=== PATIENT | male | born 1990 | race Caucasian/White ===

== ENCOUNTER 2020-11-24 19:57 | Emergency (ER) | payer OTHER, SELFPAY ==
[2020-11-24 20:00] VITALS: BP 160/101; PULSE 122; RESP 18; TEMP 37; O2SAT 99; BMI 33.7
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
[2020-11-24 20:51] VITALS: BP 139/90; PULSE 90; RESP 18; O2SAT 98
[2020-11-24 20:51] LABS: Basophils % 0.3 %; Eosinophils # 0.1 10^3/uL (0.0-0.8); Hemoglobin 14.8 g/dL (11.7-16.6); Lymphocytes # 1.6 10^3/uL (0.8-4.8); Lymphocytes % 12.7 %; Mean Corpuscular HGB Conc 32.9 g/dL (30.0-36.0); Mean Corpuscular Hemoglobin 29.9 pg (28.0-34.0); Mean Corpuscular Volume 90.9 fL (80-94); Mean Platelet Volume 10.9 fL (7.4-10.4); Monocytes # 0.9 10^3/uL (0.2-0.9); Monocytes % 7.5 %; Neutrophils # 9.65 10^3/uL (1.8-7.7); Neutrophils % 78.3 %; Nucleated Red Blood Cells % 0 %; Platelet Count 156 10^3/cmm (130-400); Red Blood Count 4.95 10^6/uL (4.1-5.3); Red Cell Distribution Width 12.6 % (12.1-15.1); White Blood Count 12.3 10^3/uL (4.0-10.0)
[2020-11-24 21:01] LABS: Lactate (Lactic Acid level) 0.9 mmol/L (0.5-2.2)
[2020-11-24 21:02] LABS: Alanine Aminotransferase 29 U/L (0-41); Albumin Level 4.5 g/dL (3.5-5.2); Alkaline Phosphatase 67 IU/L (40-130); Anion Gap 14.7 (5-19); Aspartate Amino Transferase 24 U/L (0-40); Blood Urea Nitrogen 14 mg/dL (6-20); Calcium 9.2 mg/dL (8.5-10.5); Carbon Dioxide 25 mmol/L (22-29); Chloride 103 mmol/L (98-107); Globulin 2.7 g/dL (1.3-4.6); Glomerular Filtration Rate 87.7 mL/min (90-130); Glucose 91 mg/dL (65-115); Osmolality Calculated 288 mOsm/kg (285-295); Potassium 3.7 mmol/L (3.5-5.1); Sodium 139 mmol/L (136-145); Total Bilirubin 0.6 mg/dL (0.15-1.2); Total Protein 7.2 g/dL (6.6-8.7)
[2020-11-24] MEDS: predniSONE 10 mg Tablet PO (21:21)
[2020-11-24] MEDS: cephALEXin 500 mg Capsule PO (21:21)
== END 2020-11-24 21:25 | disposition home or self-care (01) ==
PROVIDERS: Emergency Provider Nurse Practitioner Family; PCP Pediatrics Adolescent Medicine
DX: I80.02 Phlebitis and thrombophlebitis of superficial vessels of left lower extremity (principal)
CPT/HCPCS: 36415; 80053; 83605; 85025; 93971; 99283; J7512

== ENCOUNTER → 2022-05-12 15:47 | Outpatient (BNVA) | payer BC, SELFPAY | PROVIDERS: PCP Pediatrics Adolescent Medicine; Visit Provider Family Medicine | DX: M79.642 Pain in left hand (principal); S69.92XA Unspecified injury of left wrist, hand and finger(s), initial encounter; W22.8XXA Striking against or struck by other objects, initial encounter | CPT/HCPCS: 73130 ==

== ENCOUNTER → 2023-01-21 07:59 | Outpatient (BNVA) | payer BC, SELFPAY | PROVIDERS: PCP Family Medicine; Visit Provider Physician Assistant | DX: M54.50 Low back pain, unspecified (principal); M54.6 Pain in thoracic spine | CPT/HCPCS: 72070; 72110 ==

== ENCOUNTER 2023-08-08 22:37 | Emergency (ER) | payer BC, SELFPAY ==
[2023-08-08 22:53] VITALS: BP 185/108; PULSE 88; RESP 20; TEMP 36.6; O2SAT 97; BMI 36.7
--- NOTE | 2023-08-08 23:34 | CTR_ITS ---
PROCEDURE INFORMATION: Exam: CT Lumbar Spine Without Contrast Exam date and time: 08/08/2023 11:41 PM Age: 33 years old Clinical indication: Low back pain; Patient HX: C/O lower back pain after lifting heavy object at work earlier today. ; Additional info: R lumbar radiculopathy TECHNIQUE: Imaging protocol: Computed tomography of the lumbar spine without contrast. Radiation optimization: All CT scans at this facility use at least one of these dose optimization techniques: automated exposure control; mA and/or kV adjustment per patient size (includes targeted exams where dose is matched to clinical indication); or iterative reconstruction. REPORTING DATA: Count of CT and Cardiac NM exams in prior 12 months: This patient has received 0 known CTs and 0 known cardiac nuclear medicine studies in the 12 months prior to the current study. COMPARISON: CR XR lumbar spine min 4V [id number] 01/21/2023 8:02 AM RADIATION DOSE METRICS: Total DLP (mGy-cm): 1414.6 FINDINGS: Bones/joints: Transitional vertebral anatomy noted, with partial sacralization of L5 noted on the right. Mild scoliosis of the lumbar spine, convex to the left. No spondylolisthesis or spondylolysis. Vertebral body heights are preserved. No lumbar vertebral compression fractures are noted. Posterior elements appear intact. There is a moderate-sized disc protrusion demonstrated at L3-L4. This is associated with mild spinal stenosis at this level. Mild posterior disc/osteophyte complex at L4-L5. Soft tissues: Unremarkable. CT/CT lumbar spine wo con* [id number] IMPRESSION: 1. Transitional vertebral anatomy noted, with partial sacralization of L5 noted on the right. 2. There is a moderate-sized disc protrusion demonstrated at L3-L4, of undetermined age. This is associated with mild spinal stenosis at this level. Consider nonemergent follow-up MRI of the lumbar spine for further assessment. 3. No acute fracture demonstrated.
[2023-08-09] MEDS: HYDROmorphone 1 mg/mL INJ 1 mL 2 MG IM (00:04)
[2023-08-09] MEDS: methylPREDNISolone (DEPO) 80 MG/ML INJ 1 mL IM (00:05)
[2023-08-09] MEDS: ondansetron 4 MG Tablet PO (00:05)
[2023-08-09] MEDS: dexamethasone 10 mg/mL INJ IM (00:05)
[2023-08-09] MEDS: tizanidine 4 mg Tablet PO (00:05)
--- NOTE | 2023-08-09 00:29 | ED_ITS ---
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 He presents with significant lower back pain, with radicular pain mainly down the right side following lifting a 5 gallon can of paint earlier in the day. He took ibuprofen and 1 hydrocodone at home without much relief. Pain does radiate down the right leg to the foot. No numbness. No significant weakness. No groin or genital anesthesia, no loss of bowel or bladder function. Associated symptoms: Reports nausea; Deny abdominal pain, fever(s) or vomiting Review of Systems Const: Denies: fever(s) Card: Denies: chest pain Resp: Denies: dyspnea GI: Reports: nausea; Denies: abdominal pain or vomiting : Denies: flank pain or difficulty urinating Musc: Reports: back pain and extremity pain; Denies: neck pain Skin/Breast: Denies: rash Physical Exam Const: COMMON NORMALS: no acute distress GENERAL APPEARANCE: cooperative; not ill appearing and not frail appearing HENMT: COMMON NORMALS: normocephalic, atraumatic and Normal external nose present HEAD & SCALP: normocephalic and atraumatic FACE & SINUS: normal facial exam and face symmetric NOSE: Normal external nose present Eye: COMMON NORMALS: Equal, round and reactive pupils present and EOMs intact bilaterally PUPIL: Yes Equal, round and reactive pupils present Neck/C-Spine: GENERAL: Yes trachea midline Chest: CHEST: Yes Symmetrical chest wall rise Resp: COMMON NORMALS: normal respiratory effort, No retractions, No use of accessory muscles and clear to auscultation bilaterally AUSCULTATION: clear to auscultation bilaterally Cardio: COMMON NORMALS: regular rate and regular rhythm RATE: regular rate RHYTHM: regular rhythm GI: COMMON NORMALS: Normal to inspection, nondistended, normoactive bowel sounds present Back/Pelvis: OTHER: Examination of the lumbar spine reveals some midline tenderness at L4. There is right-sided greater than left-sided paraspinal tenderness. Straight leg raise is positive on the right. No weakness on muscular testing. DTRs are normal at patella and Achilles on the right. Extremity: COMMON NORMALS: no pedal edema Neuro: MONIQUE COMA SCALE: document GCS findings Monique coma scale eye opening: Spontaneous Monique coma scale verbal response: Orientated Moody coma scale motor response: Obey commands Monique coma scale total score: 15 SENSORY EXAM: Yes extremities (intact) Psych: COMMON NORMALS: speech normal SPEECH: Yes normal speech Skin: COMMON NORMALS: no rashes or lesions noted GENERAL SKIN EXAM: no rashes or lesions noted Course Vital Signs: Vital signs: Vital Signs Temperature 98 F 08/09/23 01:29 Pulse Rate 88 08/09/23 01:29 Respiratory Rate 20 H 08/09/23 01:29 Blood Pressure 185/108 08/09/23 01:29 Pulse Oximetry 97 08/09/23 01:29 MDM - Back Pain/Injury Medical Decision Making CT of the back shows a transpositional sacralization of L5. There is also a moderate size disc protrusion at L3-L4 associated with mild stenosis. This is likely the cause of his symptoms, as he does have lateral thigh and anterior leg radicular pain. He is given injections of dexamethasone/Depo-Medrol, Dilaudid, and oral tizanidine with some improvement here. He will be prescribed pain medication, muscle relaxers. Outpatient follow-up. Labs Radiology Impressions Lumbar Spine CT 08/08/23 23:34 IMPRESSION: 1. Transitional vertebral anatomy noted, with partial sacralization of L5 noted on the right. 2. There is a moderate-sized disc protrusion demonstrated at L3-L4, of undetermined age. This is associated with mild spinal stenosis at this level. Consider nonemergent follow-up MRI of the lumbar spine for further assessment. 3. No acute fracture demonstrated. All radiology interpretation(s) finalized by discharge Discharge Plan Discharge Patient Disposition: Home Clinical Impression: Lumbar radiculopathy Condition: Stable Prescriptions: New Percocet 7.5-325 mg tablet 1 tab PO Q6H PRN (Reason: pain) Qty: 10 0RF tizanidine 4 mg capsule 4 mg PO Q8H PRN (Reason: muscle spasticity) Qty: 30 0RF Discontinued hydrocodone-acetaminophen 5-325 mg tablet 1 tab PO BID PRN (Reason: pain) 5 Days Qty: 10 0RF Rx Instructions: donot drive or operate machinery or drink while taking medication prednisone 20 mg tablet 20 mg PO DAILY Qty: 15 0RF Rx Instructions: 60 mg x 3 days 40 mg x 2 days 20 mg x 2 days Discharge Orders: Discharge ED (Routine); Ordered 08/09/23 Ordered By: Khanh Hutson Referrals: Bhargavi Davison APN [Primary Care Provider] - 1-3 days Patient Instructions: Lumbar Radiculopathy (ED), Opioid Safety, Pain Management Activity Restrictions/Additional Instructions: Medications as directed. Follow-up with your doctor next week. Return for worsening problems. Stand Alone Forms: Work/School Release Coding Level of Care Code ED Well Control Instructor for Hermila Frank
[2023-08-09] MEDS: oxyCODONE-APAP 5-325 mg Tablet 2 TAB PO (01:18)
[2023-08-09 01:29] VITALS: BP 185/108; PULSE 88; RESP 20; TEMP 36.6; O2SAT 97
== END 2023-08-09 01:30 | disposition home or self-care (01) ==
PROVIDERS: Emergency Provider Emergency Medicine; PCP Nurse Practitioner Family
DX: M51.16 Intervertebral disc disorders with radiculopathy, lumbar region (principal)
CPT/HCPCS: 72131; 96372; 99284; J1040; J1100; J1170; Q0162

== ENCOUNTER → 2023-08-12 15:48 | Outpatient (BNVA) | payer BC, SELFPAY | PROVIDERS: PCP Nurse Practitioner Family; Visit Provider Orthopaedic Surgery | DX: M54.16 Radiculopathy, lumbar region (principal); M41.9 Scoliosis, unspecified | CPT/HCPCS: 72110 ==

== ENCOUNTER 2023-10-19 15:58 | Emergency (ER) | payer OTHER, SELFPAY ==
[2023-10-19 16:23] VITALS: BP 191/140; PULSE 120; RESP 16; TEMP 37.1; O2SAT 98; BMI 35.5
--- NOTE | 2023-10-19 17:06 | XRR_ITS ---
PROCEDURE INFORMATION: Exam: XR Left Elbow Exam date and time: 10/19/2023 5:28 PM Age: 33 years old Clinical indication: Injury or trauma; Prior surgery; Surgery date: 6+ months; Patient HX: Lt elbow/forearm pain post fall; HX orif x 20yr ago TECHNIQUE: Imaging protocol: Radiologic exam of the left elbow. Views: 3 or more views. COMPARISON: CR (UP EXM, ) 10/19/2023 5:28 PM FINDINGS: Bones/joints: Negative for acute fracture or focal bony abnormality. Soft tissues: Unremarkable XR/XR elbow LT min 3V* [id number] IMPRESSION: 1. No acute findings. 2. Status post ORIF left radius.
--- NOTE | 2023-10-19 17:06 | XRR_ITS ---
PROCEDURE INFORMATION: Exam: XR Left Forearm Exam date and time: 10/19/2023 5:28 PM Age: 33 years old Clinical indication: Injury or trauma; Fall; Prior surgery; Surgery date: 6+ months; Patient HX: Lt elbow/forearm pain; HX forearm orif x 20+ yrs ago; Additional info: Lt elbow/forearm painhro; HX forearm orif x 20+ yrs ago TECHNIQUE: Imaging protocol: Radiologic exam of the left forearm. Views: 2 views. COMPARISON: CR (UP EXM, ) 10/19/2023 5:28 PM FINDINGS: Bones/joints: Negative for acute bony abnormality. Metallic plate and screws seen in the midshaft radius. The remainder of the exam is unremarkable. Soft tissues: Normal. XR/XR forearm LT 2V [id number] IMPRESSION: 1. No acute findings. 2. Metallic plate and screws midshaft radius
--- NOTE | 2023-10-19 17:20 | ED_ITS ---
HPI - Extremity Injury (Upper) General: Chief Complaint: Extremity Injury, Upper Stated Complaint: left arm hurt Time Seen by Provider: 10/19/23 17:16 Source: patient Mode of arrival: ambulatory Limitations: no limitations History of Present Illness: Patient is a 33-year-old male who presents to ED today with a complaint of left forearm/elbow pain that he sustained just prior to arrival after slipping and falling on ice while at work. This is a Worker's Comp. injury. Patient reports previous hardware in the left forearm. MD complaint: injury to: left, elbow and forearm Onset (ago): hour(s) Other injuries: none Place: work Severity: moderate Relieving factors: immobilization Exacerbating factors: movement of extremity Context: fall and direct blow Associated symptoms: Reports no associated symptoms; Denies weakness in extremities Review of Systems Musc: Reports: extremity pain and joint pain Neuro: Denies: numbness in extremities, weakness in extremities or sensory changes Physical Exam Const: COMMON NORMALS: no acute distress, patient oriented x3, no limitations and alert Extremity: COMMON NORMALS: full ROM, capillary refill normal, no joint enlargement, no clubbing, cyanosis or edema, no calf tenderness and no pedal edema GENERAL: Yes normal exam except as noted LEFT UPPER EXTREMITY: Yes elbow joint (same) Left elbow: Yes ROM (full ROM of elbow) and Yes neurovascular exam (normal) and Yes lower arm (TTP/contusion noted to proximal forearm/distal elbow joint) Left lower arm: Yes neurovascular exam (normal) Neuro: COMMON NORMALS: patient oriented x3, moves all extremities, no focal motor deficits and no sensory deficits noted SENSORIUM/ORIENTATION: Yes alert Course Vital Signs: Vital signs: Vital Signs Temperature 98.7 F 10/19/23 16:23 Pulse Rate 120 H 10/19/23 16:23 Respiratory Rate 16 10/19/23 16:23 Blood Pressure 191/140 10/19/23 16:23 Pulse Oximetry 98 10/19/23 16:23 Oxygen Delivery Me thod Room Air 10/19/23 16:23 MDM - Extremity Injury (Upper) Medical Decision Making XRs negative. Will follow up with Worker's Comp. XR interpretation done by ED provider, pending radiology final review Discharge Plan Discharge Patient Disposition: Home Clinical Impression: Contusion of forearm, left Qualifiers: Encounter type: initial encounter Qualified Code(s): S50.12XA - Contusion of left forearm, initial encounter Condition: Stable Prescriptions: No Action prednisone 20 mg tablet 20 mg PO DAILY Qty: 7 0RF Rx Instructions: 60 MG (3 tabs) 1,2,3; 40MG (2 tabs) 4,5; 20MG (2 tabs) 6,7. Percocet 7.5-325 mg tablet 1 tab PO Q6H PRN (Reason: pain) Qty: 10 0RF tizanidine 4 mg capsule 4 mg PO Q8H PRN (Reason: muscle spasticity) Qty: 30 0RF Discharge Orders: Discharge ED (Routine); Ordered 10/19/23 Ordered By: Maria Guadalupe Low Referrals: Davison,MING BurkN [Primary Care Provider] - Activity Restrictions/Additional Instructions: Please follow up with Worker's Comp as directed. Coding Level of Care Code ED Personal Lines Insurance Advisor for Hermila Frank
== END 2023-10-19 18:03 | disposition home or self-care (01) ==
PROVIDERS: Emergency Provider Physician Assistant; PCP Nurse Practitioner Family
DX: S50.12XA Contusion of left forearm, initial encounter (principal); W00.0XXA Fall on same level due to ice and snow, initial encounter; Y99.0 Civilian activity done for income or pay
CPT/HCPCS: 73080; 73090; 99283

== ENCOUNTER 2023-12-01 18:23 | Emergency (ER) | payer BC, SELFPAY ==
[2023-12-01 18:40] VITALS: BP 183/109; PULSE 128; RESP 16; TEMP 36.6; O2SAT 98; BMI 38.0
--- NOTE | 2023-12-01 20:20 | ED_ITS ---
HPI - Extremity Problem General: Chief complaint: Extremity Injury, Lower Stated complaint: Lower leg pain Time Seen by Provider: 12/01/23 19:06 History of Present Illness: Patient presents to the ER with worsening low back pain that radiates all the way down to the tips of his toes. Patient has a known bad back and is seeing Dr. Sanchez for this. He recently tried to have an MRI but could not stand lying flat on his back. Patient is had no recent trauma. The only thing the patient sees at home for pain is tramadol along with [id number] acetaminophen and ibuprofen. Patient also complaining that he feels like he has charley horses all day. Patient has not complained of any bowel or bladder issues. Patient says Dr. Sanchez set him up for a CT myelogram but he has not had this done yet. Review of Systems General: Reports: 10 or more systems reviewed and unremarkable except in HPI and below Physical Exam Const: COMMON NORMALS: no acute distress, average body habitus, patient oriented x3, no limitations, healthy appearing, alert and well nourished Neck/C-Spine: COMMON NORMALS: no JVD Chest: COMMONS NORMALS: normal inspection of the chest and normal palpation of entire chest wall Resp: COMMON NORMALS: normal respiratory effort, No retractions, No use of accessory muscles and clear to auscultation bilaterally AUSCULTATION: clear to auscultation bilaterally Cardio: COMMON NORMALS: no JVD, regular rate, regular rhythm, S1 normal heart sound present, S2 normal heart sound present, No gallops present (Cardio), No clicks present (Cardio), No murmurs present (Cardio) and No rub (Cardio) RATE: regular rate RHYTHM: regular rhythm HEART SOUNDS: S1 normal heart sound present and S2 normal heart sound present GI: COMMON NORMALS: Normal to inspection, nondistended, normoactive bowel sounds present, Soft to palpation, non-tender, No hepatosplenomegaly present and no masses PALPATION: Yes Soft to palpation and Yes No hepatosplenomegaly present Back/Pelvis: OTHER: Pain with palpation bilateral paraspinal musculature over lumbar region. Neuro: COMMON NORMALS: patient oriented x3 SENSORIUM/ORIENTATION: Yes alert Course Vital Signs: Vital signs: Vital Signs Temperature 97.9 F 12/01/23 18:40 Pulse Rate 128 H 12/01/23 18:40 Respiratory Rate 16 12/01/23 18:40 Blood Pressure 183/109 12/01/23 18:40 Pulse Oximetry 98 12/01/23 18:40 Oxygen Delivery Me thod Room Air 12/01/23 18:40 MDM - Extremity (Nontraumatic) Medical Decision Making Patient was given 60 mg Norflex and 50 mcg of fentanyl and 10 mg of Decadron IM. Patient says it helped his back but his legs are still hurting. The chart was reviewed from Dr. Sanchez's note and they wanted to order a CT myelogram which we cannot do tonight. Patient will be given a small prescription of prednisone and hydrocodone. Patient should follow-up with his PCP and/or Dr. Sanchez for further definitive treatment. Differential Diagnosis Unlikely herpes zoster, gout, cellulitis, superficial thrombophlebitis, deep venous thrombosis of upper extremity, lower extremity edema or deep vein thrombosis of lower extremity Medical Records I reviewed the patient's medical records. Lab Data I reviewed the patient's lab results. No radiology studies performed this visit Discharge Plan Discharge Patient Disposition: Home Clinical Impression: Low back pain potentially associated with radiculopathy Condition: Stable Prescriptions: New hydrocodone-acetaminophen 5-325 mg tablet 1 tab PO Q6H PRN (Reason: pain) Qty: 14 0RF prednisone 50 mg tablet 50 mg PO DAILY Qty: 5 0RF No Action losartan 50 mg tablet 50 mg PO DAILY ibuprofen 200 mg capsule 600 mg PO Q4H PRN acetaminophen [Tylenol Extra Strength] 500 mg tablet 1,500 mg PO Q4H PRN tramadol 50 mg tablet 50 mg PO Q6H PRN (Reason: pain) 7 Days Qty: 30 0RF Discharge Orders: Discharge ED (Routine); Ordered 12/01/23 Ordered By: Benja Jean Referrals: Mildred García DO [Primary Care Provider] - Patient Instructions: Lumbar Radiculopathy (ED), Opioid Safety, Pain Management Activity Restrictions/Additional Instructions: Please take all medicine as prescribed. You have been given some pain pills to get you through the night until you get your prescription filled in the morning. These pills are to help your pain until you get get in with your doctor for more definitive treatment. In the morning please call Dr. Sanchez or your family practice doctor for further definitive treatment. Coding Level of Care Code ED Multimedia Educational Specialist for Hermila Frank
[2023-12-01] MEDS: fentaNYL 50 mcg/mL INJ 2mL XX (20:51)
[2023-12-01] MEDS: orphenadrine 30 mg/mL Inj 2 mL 60 MG IM (20:51)
[2023-12-01] MEDS: dexamethasone 10 mg/mL INJ IM (20:51)
[2023-12-01] MEDS: HYDROcodone-acetaminophen 5-325 mg Tablet 4 TAB PO (22:44)
== END 2023-12-01 22:45 | disposition home or self-care (01) ==
PROVIDERS: Emergency Provider Emergency Medicine; PCP Family Medicine
DX: M54.50 Low back pain, unspecified (principal)
CPT/HCPCS: 96372; 99284; J1100; J2360; J3010

== ENCOUNTER 2023-12-02 12:49 | Outpatient (CLI) | payer BC, SELFPAY ==
--- NOTE | 2023-12-02 13:00 | CT_ITS ---
WS: [id number] CT LUMBAR SPINE TECHNIQUE: Contrast-enhanced CT of the lumbar spine with coronal and sagittal reformatted images. CLINICAL INFORMATION: back pain COMPARISON: CT 08/08/23 DLP: 1446.[address] scans at [facility] use at least one of these dose optimization techniques: automated e xposure control; mA and/or kV adjustment per patient size (includes targeted exams where dose is matc hed to clinical indication); or iterative reconstruction. FINDINGS: 5 nonrib-bearing lumbar vertebral bodies. Transitional lumbosacral segment considered L5 for the purp oses of this dictation. L5 is partially sacralized on the RIGHT. Mild lumbar curve. No acute compress ion. L1-L2: No significant disc bulging. Spinal canal and foramen are patent. L2-L3: Mild facet arthropathy. Spinal canal and foramen are patent. L3-L4: Central disc osteophyte protrusion. Moderate central canal stenosis unchanged compared to prev ious. Impingement traversing LEFT greater than RIGHT L4 nerve roots. Moderate facet arthropathy. Fora men are patent. L4-L5: Mild annular bulging with disc osteophytic ridging. Moderate central canal stenosis. Impingeme nt traversing LEFT greater than RIGHT L5 nerve roots. This appears unchanged. Mild LEFT greater than RIGHT foraminal narrowing. L5-S1: L5 is transitional. Disc osteophytic ridging with slight impingement of the LEFT S1 nerve root . Foramen are patent. Mild facet arthropathy. Partial sacralization on the RIGHT. Visualized pelvic bony structures: Normal. Paravertebral soft tissues: Normal. IMPRESSION: 1. 5 nonrib-bearing lumbar vertebral bodies. L5 is transitional and sacralized on the RIGHT. 2. Unchanged moderate central canal stenosis L3-4 due to central disc osteophyte protrusion 3. Stable moderate central canal stenosis L4-5 with central disc protrusion and disc osteophytic rid ging. 4. Disc bulge L5-S1 slightly impinges the LEFT S1 nerve root. 5. Moderate facet arthropathy L3-L4 and L4-L5. 6. Mild LEFT L4-5 foraminal narrowing. 7. MRI can be obtained for better anatomic detail if indicated.
[2023-12-02] MEDS: iohexol 350 mg/mL 500 mL Btl (per mL) IV (13:15)
== END 2023-12-02 12:50 | disposition home or self-care (01) ==
LOC: RAD 12:49
PROVIDERS: PCP Family Medicine; Visit Provider Orthopaedic Surgery
DX: M46.96 Unspecified inflammatory spondylopathy, lumbar region (principal); M48.061 Spinal stenosis, lumbar region without neurogenic claudication; M51.27 Other intervertebral disc displacement, lumbosacral region
CPT/HCPCS: 72132; Q9967

== ENCOUNTER 2023-12-05 10:00 | Outpatient (CLI) | payer BC, SELFPAY | END 2023-12-05 10:01 | disposition home or self-care (01) | LOC: RAD 10:00 | PROVIDERS: PCP Family Medicine; Visit Provider Orthopaedic Surgery | DX: M48.062 Spinal stenosis, lumbar region with neurogenic claudication (principal) | CPT/HCPCS: 36415; 80053; 81003; 85025 ==

== ENCOUNTER 2023-12-12 09:47 | Outpatient (CLI) | payer BC, SELFPAY ==
--- NOTE | 2023-12-12 09:49 | CT_ITS ---
WS: [email or web address] CT MYELOGRAM LUMBAR SPINE HISTORY: M48.062 - Spinal stenosis, lumbar region with neurogenic ... TECHNIQUE: Contiguous 2.5 mm axial imaging performed from T12 through the mid sacral level. Bone and soft tissue windows reviewed. Sagittal and coronal reformats are submitted and reviewed. DLP: 1763.[address] scans at [facility] use at least one of these dose optimization techniques: automated e xposure control; mA and/or kV adjustment per patient size (includes targeted exams where dose is matc hed to clinical indication); or iterative reconstruction. COMPARISON: CT 12/02/2023 Good contrast injection into the thecal sac. There is an abrupt termination of the column of contrast at L3-4. The nerve roots in the thecal sac are being compressed by a large central disc protrusion. This was also described on the prior lumbar spine of 12/02/2023. L1-L2: No stenosis. No disc protrusion. L2-L3: No significant disc protrusion. There is mild ligamentum flavum and facet arthritis. L3-L4: There is a large central disc protrusion displacing the thecal sac posteriorly. Width of the d isc protrusion is 1.5 cm, AP diameter 1.0 cm. The disc protrusion is partially calcified as noted on the prior study. This large disc protrusion is causing severe stenosis with interruption of the contr ast column. Mild facet arthritis. Disc extends asymmetrically into the RIGHT without significant fora sonny narrowing. L4-L5: Diffuse annular disc bulging and osteophytic ridging. Facet joint arthritis. There is at least moderate if not severe central and bilateral subarticular recess stenosis. L5-S1: L5 transitional vertebrae. Partial sacralization of L5 on the RIGHT. Central to LEFT foraminal disc protrusion. Disc protrusion contacting the LEFT S1 nerve root. Mild central with LEFT subarticu lar recess stenosis. Paravertebral soft tissues are normal. IMPRESSION: 1. L3-4: Severe central stenosis at the L3-4 level. There is a large disc protrusion measuring 1.5 x 1.0 cm causing complete blockage of the contrast column. 2. L4-5: Moderate to severe central and bilateral subarticular recess stenosis. 3. L5-S1: Central to LEFT paracentral disc protrusion at L5-S1. Disc protrusion contacting the LEFT S1 nerve root. Mild central and LEFT subarticular recess stenosis. Note: Patient was having significant lower extremity pain after injection of the subarachnoid contras t. This was due to the high-grade stenosis. Patient is discharged home as no complications were evide nt from the procedure. Patient was instructed to return to the emergency department if pain became in tolerable. Patient has been scheduled for surgery next week.
--- NOTE | 2023-12-12 10:15 | IR_ITS ---
WS: [email or web address] LUMBAR MYELOGRAM HISTORY: back pain COMPARISON: Lumbar CT 12/02/2023 FLUOROSCOPY TIME: 1min [id number] # of spot films: 1 Procedure, risks and complications were explained to the patient. Risks including bleeding, infection , headaches, allergic reaction and seizures. Consent has been obtained. With the patient in prone position the skin over the lumbar region is cleansed with ChloraPrep and an esthetized with lidocaine. 22-gauge spinal needle is inserted into the thecal sac at the appropriate level determined by fluoroscopy. Omnipaque 240; 12 ml is injected slowly under fluoroscopy with no co mplications. Needle bevel is perpendicular to the longitudinal fibers of the dura. Stylet is reinsert ed prior to removal of the needle. Patient tolerated the procedure well. Patient will proceed to CT f or further evaluation. Patient was complaining of pain after contrast injection into the subarachnoid space. IMPRESSION: 1. Status post lumbar myelogram. No complications injecting the contrast. 2. Contrast column was interrupted at the L3-4 disc level. This will be visualized better on the CT to follow.
== END 2023-12-12 09:48 | disposition home or self-care (01) ==
LOC: RAD 09:48
PROVIDERS: PCP Family Medicine; Visit Provider Orthopaedic Surgery
DX: M48.062 Spinal stenosis, lumbar region with neurogenic claudication (principal); M51.27 Other intervertebral disc displacement, lumbosacral region; M48.07 Spinal stenosis, lumbosacral region
CPT/HCPCS: 62304; 72133; Q9966

== ENCOUNTER 2023-12-17 14:55 | Observation (INO) | payer BC, SELFPAY ==
[2023-12-17] VITALS (22 sets, daily range): BP systolic 133–170; BP diastolic 78–116; PULSE 79–115; RESP 16–20; TEMP 36.1–36.8; O2SAT 94–100; BMI 38.5; BMI 39.6
--- NOTE | 2023-12-17 | XR_ITS ---
WS: [email or web address] C-ARM RADIOGRAPHS LUMBAR SPINE; 3 IMAGES HISTORY: AMBER PICS COMPARISON: None available. Intraoperative imaging during lumbar fusion. Markers indicating the lower lumbar spine. IMPRESSION: Intraoperative imaging during lumbar decompression surgery.
--- NOTE | 2023-12-17 09:36 | PC.NURSE ---
ATTEMPTED TO CALL PATIENT'S 1122. CALL WENT TO [facility]
--- NOTE | 2023-12-17 09:37 | PC.NURSE ---
UPDATE ON PATIENT GIVEN TO PREOP STAFF TO BE GIVEN TO PATIENT'S
[2023-12-17] MEDS: sodium chloride 0.9% 1,000 ML 30 ML IV (10:36)
--- NOTE | 2023-12-17 10:47 | ANES.PREANE2 ---
Pre-Anesthetic Assessment Height/Weight: Height 1.96 m Weight 147.418 kg Temp Pulse Resp BP Pulse Ox O2 Del Method 98.3 F 100 18 170/116 100 Room Air 12/17/23 10:18 12/17/23 10:18 12/17/23 10:18 12/17/23 10:18 12/17/23 10:18 12/17/23 10:21 Operation Date: 12/17/23 11:35 Proposed Procedures p Lumbar Spine Decompression Lumbar Decompression /Standing on right side/Bilateral L3-L4 & Bilateral L4-L5(Bilateral) - Clifford H Laura, DO Familial anesthetic complications: None Was Beta Haile taken within 24 hours: N/A Was Clonidine taken within 24 hours: N/A Last intake: Intake Last Liquid Date 12/16/23 Last Liquid Time 21:00 Last Solid Date 12/16/23 Last Solid Time 17:30 Social No alcohol and No tobacco Exam alert, oriented x 3, clear to auscultation bilaterally and regular rate & rhythm Airway Mallampati: Class IV Dentition: chipped Comments: Comments: large neck and tongue, excess submandibular tissue CV/HEM Hypertension Metabolic Morbid Obesity Anesthetic Plan ASA status: 2 Anesthesia: General Risk of > 500 ml blood loss (7ml/kg in children): No Medications/Allergies Home Medications Medication Instructions Recorded Confirmed Last Taken Type acetaminophen 500 mg tablet 1,500 mg PO Q4H PRN Pain 11/28/23 12/16/23 12/16/23 History (Tylenol Extra Strength) losartan 50 mg tablet 50 mg PO DAILY 11/28/23 12/16/23 12/15/23 History hydrocodone 5 mg-acetaminophen 325 1 - 2 tab PO Q6H PRN pain 7 days 12/05/23 12/16/23 12/17/23 Rx mg tablet #21 tabs Allergies Allergy/AdvReac Type Severity Reaction Status Date / Time No Known Allergies Allergy Verified 12/11/23 09:37 Current Medications Generic Name Dose Route Start Last Admin Trade Name Freq PRN Reason Stop Dose Admin Sodium Chloride 1,000 mls @ 30 mls/hr 12/17/23 10:00 12/17/23 10:36 Sodium Chloride 0.9% IV 12/18/23 09:59 30 mls/hr .Q24H DIANE Administration Data Anesthesia Cardiac Studies: No Data to Display
[2023-12-17] MEDS: midazolam 1 mg/mL INJ 2 mL 2 MG IVP (11:58)
--- NOTE | 2023-12-17 12:29 | W.PM.OPSUD ---
Surgery/Procedure H&P Update DATE OF PROCEDURE: December 17, 2023 DATE H&P PERFORMED: 12/11/23 H&P UPDATE INFORMATION: I have reviewed H&P completed within last 30 days, I have examined patient prior to procedure and No changes to prior documentation PLANNED PROCEDURE: Operation Date: 12/17/23 11:35 Proposed Procedures p Lumbar Spine Decompression Lumbar Decompression /Standing on right side/Bilateral L3-L4 & Bilateral L4-L5(Bilateral) - Clifford Sanchez DO
[2023-12-17] MEDS: ceFAZolin 3,000 MG in sodium chloride 0.9% (plus) 100 ML 200 MG IV (12:37)
[2023-12-17] MEDS: vancomycin 1,000 MG SDV 1000 MG XX ×2 (13:21→14:55)
[2023-12-17] MEDS: lidocaine-epi 1% 20 mL INJ INJECTION (13:23)
[2023-12-17] MEDS: thrombin 5,000 unit SDV 5000 UNIT XX (13:24)
--- NOTE | 2023-12-17 15:23 | P.OP_ITS ---
Operative Report Date of procedure: December 17, 2023 Pre-op diagnosis: Lumbar stenosis with neurogenic claudication Post-op diagnosis: same Surgeon: Clifford Sanchez DO Procedure: 1. L3-4 laminectomy with partial facetectomies 2. L4-5 laminectomy with partial facetectomies 3. L5-S1 laminectomy with partial facetectomies Patient was brought to the operative suite after undergoing Anesthesia the patient was was placed in the prone position. All areas of impingement were well-padded. Patient's prepped draped normal sterile fashion. Skin incision made over the L3-S1 level. The spinous processes were identified. Subperiosteal dissection was made out to the facet joints of L3-4, L4-5 and L5- S1. Retractors were placed. Attention was first brought to the L5-S1 level. The spinous process was taken down with a rongeur. The laminectomy was performed with a high-speed bur and curved curettes and Kerrison rongeurs. The medial aspect of the facet joints were taken down using high-speed bur and curved curettes and Kerrison rongeurs. This was done bilaterally. The ligamentum flavum was taken down after levels gone to S1. The S1 nerve roots were traced around the S1 pedicles. The L5 nerve roots were traced out the L5-S1 foramen bilaterally. During the drilling a piece of dura cut the drill there is a small tear in the dura. A double stitch was placed is watertight seal. And applied a piece of DuraGen and DuraSeal placed at the end of the case. Next attension was brought to the L4-5 level. The spinous process was taken down with a rongeur. The high-speed bur was then used to take down the lamina and the medial aspect of facet joints were taken down with a high-speed bur and curved curettes and Kerrison rongeurs. This was done bilaterally. The L4 nerve roots were traced out the L4-5 foramen bilaterally and the L5 nerve was traced around the L5 pedicles. Attention was then brought to the L3-4 level. The spinous process was taken down the lamina taken down with a high-speed bur the ligamentum flavum was taken down from L3 3 to L4. And then the medial aspect of the facet joints taken down with a high-speed bur curved curettes and Kerrison rongeurs. L3 nerves were traced at the L3-4 foramen the L4 nerve straight from the L4 pedicles. The dura was retracted and the L4 nerve root. A large disc herniation was identified. The curved curette was brought the extruded piece and then a micropituitary was used to remove the large fragment of disc. This was irrigated several times. Once this was complete removal the dura was freely mobile. Wounds were irrigated closed wound was closed in layered fashion with 0 Vicryl 2-0 Vicryl and Monocryl suture. Sterile dressings applied patient transferred to PACU in stable addition.
[2023-12-17] MEDS: fentaNYL 50 mcg/mL INJ 2mL IVP (15:37)
[2023-12-17] MEDS: lactated ringers 1,000 ML 90 ML IV (16:45)
[2023-12-17] MEDS: ketorolac 30 mg/mL INJ IVP (16:53)
[2023-12-17] MEDS: HYDROcodone-acetaminophen 10-325 mg Tablet PO ×2 (17:38→21:47)
[2023-12-17] MEDS: morphine 4 mg/mL SDV 1 mL 2 MG IVP ×5 (18:05→22:54)
[2023-12-17] MEDS: diazePAM 5 mg Tablet PO (19:26)
[2023-12-17] MEDS: docusate sodium 100 mg Capsule PO (19:26)
[2023-12-17] MEDS: ceFAZolin 2,000 MG in sodium chloride 0.9% (plus) 50 ML 100 MG IV (19:32)
[2023-12-18] VITALS (14 sets, daily range): BP systolic 137–159; BP diastolic 84–98; PULSE 113–131; RESP 16–19; TEMP 36.7–37.5; O2SAT 93–95
[2023-12-18] MEDS: morphine 4 mg/mL SDV 1 mL 2 MG IVP ×6 (00:58→07:56)
[2023-12-18] MEDS: ceFAZolin 2,000 MG in sodium chloride 0.9% (plus) 50 ML 100 MG IV ×2 (03:00→11:38)
[2023-12-18] MEDS: lactated ringers 1,000 ML 90 ML IV ×2 (03:07→14:25)
--- NOTE | 2023-12-18 07:51 | PM.PN ---
Subjective Subjective: Patient is complaining of back pain. Vitals/I&O/Wt Last Vital Signs Temp 98.0 F 12/18/23 07:30 Pulse 120 H 12/18/23 07:30 Resp 16 12/18/23 07:30 BP 145/85 12/18/23 07:30 Pulse Ox 94 12/18/23 07:30 O2 Del Method Room Air 12/18/23 07:30 O2 Flow Rate 6 12/17/23 15:31 12/17/23 12/18/23 12/18/23 22:59 06:59 14:59 Intake Total 2050 / 2150 1603 / 3753 Output Total 455 / 455 1000 / 1455 Balance 1595 / 1695 603 / 2298 Weight last 48 hrs Weight 337 lb Weight 334 lb 9 oz Weight 325 lb Physical Exam Narrative: History of bilateral lower extremities. Drain has minimal output. Urinary Catheter Management: Devlin: Cath Placed During This Visit: yes Reason for Continuing Indwelling Catheter: Required Immobilization for Trauma or Surgery or Anesthesia Urinary Catheter Date of Insertion: 12/17/23 Urinary Catheter Time of Insertion: 13:00 A&P Assessment and plan (1) Status post lumbar laminectomy: Patient postop day 1 L3-S1 decompression. DC Hemovac drain Set patient up 45 degrees for an hour and then get him up with physical therapy to see how he does. Possible discharge planning this afternoon if he does okay with physical therapy. Attestations Medical Necessity Statement*: Pain control Coding Level of Care Code Acute Code for Chg Fwd Diagnoses Status post lumbar laminectomy Z98.890
[2023-12-18] MEDS: losartan 50 mg Tablet PO (07:55)
[2023-12-18] MEDS: docusate sodium 100 mg Capsule PO ×2 (07:55→18:09)
[2023-12-18] MEDS: HYDROcodone-acetaminophen 10-325 mg Tablet PO ×4 (09:25→22:09)
--- NOTE | 2023-12-18 18:35 | PC.NURSE ---
Called Dr. Sanchez to see if the Hemovac Drain and Devlin can come out. Dr. Sanchez gave orders for it to be removed tonight.
[2023-12-18] MEDS: diazePAM 5 mg Tablet PO (22:09)
[2023-12-19] MEDS: lactated ringers 1,000 ML 90 ML IV (00:53)
[2023-12-19] MEDS: HYDROcodone-acetaminophen 10-325 mg Tablet PO ×2 (01:54→06:03)
[2023-12-19 03:00] VITALS: BP 158/102; PULSE 112; RESP 18; TEMP 36.7; O2SAT 96
[2023-12-19 05:53] VITALS: BMI 40.2
--- NOTE | 2023-12-19 06:28 | PC.NURSE ---
nurse removed drain at 0600, pt tolerated well and drain was intact, inforced with xeroform and coverderm.
--- NOTE | 2023-12-19 06:59 | PM.DCS ---
Discharge Providers Date of Admission: 12/17/23 14:55 Date of Discharge: December 19, 2023 Attending Provider at Admission: Clifford Sanchez DO Attending Provider at Discharge: Clifford Sanchez DO Primary Care Provider: Mildred García DO Diagnoses at Discharge Discharge Diagnosis (1) Status post lumbar laminectomy: Status: Acute Reason for Visit Reason for Visit: M48.062 Physical Exam Narrative: Like things to improve. The back pain off and shoulder is still hurting. At this point plan is to discharge him home. Urinary Catheter Management: Devlin: Cath Placed During This Visit: yes, but has since been removed by the nurse Reason for Continuing Indwelling Catheter: Decision to DC Catheter Urinary Catheter Date of Insertion: 12/17/23 Urinary Catheter Time of Insertion: 13:00 Date Urinary Catheter Removed: 12/19/23 Time Urinary Catheter Discontinued: 06:09 Discharge Data Studies Completed and Pending Pending at discharge Category Date Time Status XR lumbar spine 2-3V* [id number] Routine Exams 12/17/23 00:00 Taken Vitals Last Vital Signs Temp 98.0 F 12/19/23 03:00 Pulse 112 H 12/19/23 03:00 Resp 18 12/19/23 03:00 BP 158/102 12/19/23 03:00 Pulse Ox 96 12/19/23 03:00 O2 Del Method Room Air 12/19/23 03:00 O2 Flow Rate 6 12/17/23 15:31 Discharge Plan Discharge Patient Disposition: Home Condition: Stable Prescriptions: New hydrocodone-acetaminophen 10-325 mg tablet 1 tab PO Q4H PRN (Reason: pain) 7 Days Qty: 40 0RF Continued losartan 50 mg tablet 50 mg PO DAILY acetaminophen [Tylenol Extra Strength] 500 mg tablet 1,500 mg PO Q4H PRN (Reason: Pain) Discontinued hydrocodone-acetaminophen 5-325 mg tablet 1 - 2 tab PO Q6H PRN (Reason: pain) 7 Days Qty: 21 0RF Discharge Orders: Discharge Order (Routine); Ordered 12/19/23 Ordered By: Clifford Sanchez Referrals: Clifford Sanchez DO [Physician] - 12/30/23 11:00 am Discharge Diet: Advance as tolerated Discharge Activity: Limit activity as instructed Patient Instructions: Opioid Safety Activity Restrictions/Additional Instructions: Thank you for [facility] for your care! The following is a list of instructions, from your provider, to follow upon your discharge to ensure you have the optimal recovery from your recent injury orsurgery. Follow-up care is a parker part of your treatment and safety. Be sure to make and go to all appointments, and call your doctor if you are having problems. If you do not already have a follow-up appointment made, call Dr. Sanchez office in the next 1-3 days to make follow up appointment for 2 weeks at [phone]. It is also a good idea to know your test results and keep a list of the medicines you take. Medications will be prescribed for you at your provider's discretion. These medications are to be used as instructed; if they are taken more often that prescribed they will not be refilled early and in most cases will not be refilled at all. > When a refill is needed,you should contact [facility]kinson 2-3 business days before your prescription runs out. Medications will NOT be refilled by proposal consultant providers after hours! > Many pain medications contain Tylenol (Acetaminophen). Do not consume more than 4,000 mg of Tylenol per day in total with any combination ofmedications. > Pain medications can cause constipation. Please use an over the counter stool softener as directed, while taking pain medications. Consulty our local pharmacist with questions or recommendations on stool softeners. If constipation persists, contact our office or your primary care provider. > While under our care,you are not to receive pain medications or other controlled substances from any other provider unless our office is notified and approves. Any attempts to do so will result in refusal to prescribe any further pain medications and possible dismissal from our practice. ? Your wound and/or dressing should remain clean and dry for 2 days after surgery. On postoperative day 2 (48 hours after your surgery) the dressing (if present) should be removed and it is okay to shower and get the incision wet. Pad dry afterwards. No further dressing should be required from that point on. Do not put any creams or ointments on theincision > It is normal for there to be a small amount of discharge (bloody or blood tinged) present from a surgical wound for the first 1-3days. > The wound should be examined twice a day for signs of infection. Mild redness or bruising is to be expected but indications that an infection maybe starting would include; An increase in redness, swelling, or discharge, a foul odor present around the incision, and/or a fever greater than 101 ?F ? Showering is permitted, however we ask that you do not take a bath, sit in a whirlpool / Jacuzzi, or go swimming for 1 month. For only the first 2 days after surgery, lt wilt be necessary for you to cover your wound/dressing with plastic and tape to keep it dry. ? Walking is essential for the healing process after surgery. We would like you to slowly advance your walking. This should be done on relatively flat clear ground (inside or out) or can be done on a treadmill. Remember this goal does not have to happen all at once, slowly increase your distance and duration. This can be broken into more more than one walk per day as tolerated. Patients who walk as directed after surgery rarely require Physical Therapy. In the unlikely event this issue arises your provider will direct hospital staff to make the appropriate arrangements. ? No lifting over 5 pounds {a gallon of milk) or bending/twisting until further notice. Each of these activities places an unnecessary amount of stress onto the body and can impede the delicate healing process. > Instead of bending at the waist, keep your back straight and bend at the knees. > Instead of twisting your torso, keep your back straight and turn your entire body with your feet. ? You may sleep in any position which makes you comfortable. Many patients find comfort sleeping in a reclining chair. It is not abnormal to have difficulty sleeping for the first several weeks following your surgery. We recommend trying Benadry! or Tylenol PM as directed to help with your sleeping difficulties. Both medications are over the counter and available withoutprescription. ? NO SMOKING!!! Smoking dramatically increases the probability of developing postoperative wound infections. ? Common complaints after lumbar and/or thoracic spine surgery include, but are not limited to: numbness and/or tingling in the legs, pain around the incision and surrounding tissues, muscle spasms, or stiffness of the middle to low back. Contact our office if these symptoms persist or if an acute change occurs. ? No driving for the first 3-5days, and not while taking narcotics until seen at your follow-up appointment and cleared. There are no restrictions for riding on short trips, however if you take a longer trip, arrangements should be made to make regular stops to get out of the vehicle and stretch . ? Swelling is an unfortunate event that will take place with any surgery and is the primary source of your postoperative discomfort. While walking and regular approved activities helps control inflammation, there are additional steps you can take to minimizeswelling. > Place ice over the surgical site and surrounding tissue for twenty minutes, followed by applying a low/medium heat (heating pad) for an additional twenty minutes every 1-2 hours as needed for painrelief. > You may use of over the counter anti-inflammatory medications (Ibuprofen, Motrin, Aleve, Advil, etc) as directed on the package label. These types of medicines wm significantly reduce the amount of discomfort you experience after surgery from swelling. It should be noted that if you have and allergy to any of these medications, or a history of ulcers or kidney disease you should consult you primary care provider prior to starting these medications. Discharge Attestations Time Spent in Discharge Care*: less than 30 min Quality Metrics Clinical Quality Measures [ No reported AMI, CVA or VTE this stay] Coding Level of Care Code Acute Code for Chg Fwd Diagnoses Status post lumbar laminectomy Z98.890
[2023-12-19 07:00] VITALS: BP 142/97; PULSE 123; RESP 16; TEMP 36.7; O2SAT 96
[2023-12-19 09:27] VITALS: BP 147/97
[2023-12-19] MEDS: losartan 50 mg Tablet PO (09:27)
[2023-12-19] MEDS: docusate sodium 100 mg Capsule PO (09:27)
--- NOTE | 2023-12-19 09:55 | PC.CHAP ---
Pastoral Care Encounter/Spiritual Assessment Type of Contact [] Declined guest services manager visit [] Patient/Family/Request visit [] Outpatient visit [] Follow-up visit [] Physician referral [] Code/Alert [x] Routine visit [] Staff referral [] Actively dying [] Patient sleeping [x] Family support [] [] Out of room [] Palliative care [] [] Receiving care in room [] Pre-surgical visit [] Trauma [] Long length of stay [] ICU visit [] Other: Relational/Emotional Strength [x] Patient feels connected with others/family/visitors/staff [] Distress [] Loneliness/isolation [] Abandonment Spirituality of Patient [x Person of Inez [] Attends Yazdanism of their Inez [x] Believes in Prayer [] Reads Bible or Uatsdin materials [] There are Spiritual issues to be addressed [employer] [x] Prayer [x] Active listening [] Non-anxious presence [x] Spiritual/emotional support [] Crisis/trauma care [] Spiritual counseling [] Bereavement support [] Provided bereavement packet [] Provided Bible/devotional materials [] Provided toy/stuffed animal, coloring book to patient or family member [] Provided Communion [] Anointing/[place] [] Salvation [x] Completed spiritual assessment [] Other: Impact on Illness or Injury [] Angry [] Fearful [] Anxious [] Often cries [] Exhaustion [] Unable to work [] Unable to attend jainism [] Unable to walk/stand [] Unable to read [] Unable to drive [] Unable to eat/drink [] Unable to sleep [] Unable to be with family [] Patient intubated [] Other: Summary Time spent with patient 5 min
--- NOTE | 2023-12-19 11:43 | PC.NURSE ---
Discussed discharge with patient and spouse. Went over activities and restrictions as well as new medications, continued medications and discontinued medications. Went over signs and symptoms of infection, when to call the doctors office and to call anytime they have questions. Both patient and spouse verbalized understanding.
[2023-12-19 11:45] VITALS: BP 147/97; PULSE 119; RESP 16; TEMP 36.7; O2SAT 96
== END 2023-12-19 10:50 | disposition home or self-care (01) ==
LOC: MEDSURG 14:56
PROVIDERS: Admitting Provider Orthopaedic Surgery; PCP Family Medicine; Visit Provider Orthopaedic Surgery
PROC: (CPT 63005; principal; 2023-12-17 11:25)
DX: M48.062 Spinal stenosis, lumbar region with neurogenic claudication (principal); G97.41 Accidental puncture or laceration of dura during a procedure; I10 Essential (primary) hypertension; E66.01 Morbid (severe) obesity due to excess calories; Z68.41 Body mass index [BMI] 40.0-44.9, adult
CPT/HCPCS: 63047; 63048 ×2; 51702; 72100; 76000; 97116; 97161; 97530; G0378; J0131; J0330; J0690; J1100; J1885; J2250; J2270; J2405; J2704; J2710; J3010; J3370; J3490; J7030; J7120

== ENCOUNTER 2024-02-12 06:00 | Outpatient (RCR) | payer BC, SELFPAY | END 2024-03-05 23:59 | disposition home or self-care (01) | LOC: SPT 06:00 | PROVIDERS: Visit Provider Orthopaedic Surgery | DX: M54.9 Dorsalgia, unspecified (principal); G89.29 Other chronic pain | CPT/HCPCS: 97161 ==

== ENCOUNTER → 2024-04-27 14:33 | Outpatient (BNVA) | payer BC, SELFPAY | PROVIDERS: PCP Family Medicine; Visit Provider Orthopaedic Surgery | DX: M48.062 Spinal stenosis, lumbar region with neurogenic claudication (principal); M47.896 Other spondylosis, lumbar region | CPT/HCPCS: 72100 ==

== ENCOUNTER → 2024-05-04 07:57 | Outpatient (BNVA) | payer BC, SELFPAY | PROVIDERS: PCP Family Medicine; Visit Provider Orthopaedic Surgery | DX: M48.062 Spinal stenosis, lumbar region with neurogenic claudication (principal); Z98.890 Other specified postprocedural states | CPT/HCPCS: 72100 ==

== ENCOUNTER 2024-06-21 16:26 | Outpatient (RCR) | payer BC, SELFPAY | END 2024-07-05 23:59 | disposition home or self-care (01) | LOC: SPT 16:26 | PROVIDERS: Visit Provider Orthopaedic Surgery | DX: M54.9 Dorsalgia, unspecified (principal); G89.29 Other chronic pain | CPT/HCPCS: 97110; 97161 ==

== ENCOUNTER 2024-07-07 16:08 | Outpatient (RCR) | payer BC, SELFPAY | END 2024-07-28 23:59 | disposition home or self-care (01) | LOC: SPT 16:08 | PROVIDERS: Visit Provider Orthopaedic Surgery | DX: M54.9 Dorsalgia, unspecified (principal); G89.29 Other chronic pain | CPT/HCPCS: 97110 ==

== ENCOUNTER 2025-08-14 11:24 | Emergency (ER) | payer OTHER, SELFPAY ==
--- OUTSIDE RECORDS SUMMARY | 2025-08-14 11:32 | XMS_ITS | Clinical Summary ---
Author Organization [facility] on Address [address] [place] [address] Phone Care Team Providers Care Picking Table Worker Name Role Phone Unavailable Primary Care Provider Unavailabl e Allergies No known active allergies Medications HYDROcodone-acet aminophen (NORCO) 7.5-325 mg Oral Tab Take 1 Tab by mouth every 6 hours as needed for Pain, Moderate. 15 Tab 0 06/17/2012 Active Social History Tobacco Use Types Packs/Day Years Used Date Smoking Tobacco: Never Smokeless Tobacco: Current Chew Alcohol Use Standard Drinks/Week Comments Yes 0 (1 standard drink = 0.6 oz pur e alcohol) Socially. 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 Gender Identity Not on file Sexual Orientation Not on file Last Filed Vital Signs Vital Sign Reading Time Taken Comments Blood Pressure 165/84 06/17/2012 3:49 PM CDT Pulse 77 06/17/2012 3:49 PM CDT Temperature 36.7 C (98 F) 06/17/2012 3:49 PM CDT Respiratory Rate 18 06/17/2012 3:49 PM CDT Oxygen Saturation 99% 06/17/2012 3:49 PM CDT Inhaled Oxygen Concentration - - Weight 113.4 kg (250 lb) 06/17/2012 1:51 PM CDT Height 195.6 cm (6' 5 ) 06/17/2012 1:51 PM CDT Body Mass Index 29.65 06/17/2012 1:51 PM CDT Plan of Treatment Health Maintenance Due Date Last Done Comments DTAP/TDAP/TD VACCINES (1 - Tdap) 2009 HEPATITIS B VACCINES (1 of 3 - 19+ 3-dose series) 04/05 HPV VACCINES (1 - 3-dose SCDM series) 2017 INFLUENZA VACCINE (#1) 2025 Insurance WORKERS COMP
--- OUTSIDE RECORDS SUMMARY | 2025-08-14 11:32 | XMS_ITS | Data Portability ---
Author Organization [facility] Address [address] [place] [address] Care Team Providers Care Air Vice Marshal Name Role Phone Unavailable Medical Manager Assessment No assessment recorded. Plan of Treatment Reminders Order Date Submit Date Provider Last Modified By Organization Details Last Modified Time Details Appointments None recorded. Lab HbA1c (hemoglobin A1c), blood 2023 [facility] ([facility]), [address] [place], [address], 17:08:41 TSH, serum or plasma 2023 024 [facility] ([facility]), [address] [place], [address], 4 13:41:55 CMP, serum or plasma 2023 024 [facility], [address], [facility] [address], [address], 4 13:30:26 lipid panel, blood 2023 024 [facility], [address], [facility] [address], [address], 4 13:30:28 CBC 2023 024 [facility], [address], [facility] [address], [address], 13:16:03 Referral None recorded. Procedures None recorded. Surgeries None recorded. Imaging XR, lumbosacral spine, 4 or more view - Please do flexion and extension views. [address] [facility] ([facility]), [address] [place], [address], 15:34:35 Medication Orders None recorded. Patient TargetsNo targets recorded. Patient InstructionsNo instructions recorded. Reason for Referral None Reported. Results Created Date Observation Date Name Description Value Unit Range Abnormal Flag Note LastModifiedBy Organization Detail LastModifiedTime 08/18/2008/18/2024 CBC WBC 5.3 x10 4.5-10 .5 Not Available [facility] [address], [place], [address], 08/18/2024 13:16:03 08/18/2008/18/2024 CBC RBC 4.73 x10 4.30-5 .90 Not Available [facility] [address] [facility] [address], [place], [address], 08/18/2024 13:16:03 08/18/2008/18/2024 CBC HGB 14.8 g/dL 13.5-1 8.0 Not Available [facility] [address] [facility] [facility] [facility] [address], [place], [address], 08/18/2024 13:16:03 08/18/2008/18/2024 CBC HCT 42.6 % 35.0-6 0.0 Not Available [facility] [address], [place], [address], 08/18/2024 13:16:03 08/18/2008/18/2024 CBC MCV 90.0 fL 80.0-9 9.9 Not Available [facility] [address], [place], [address], 08/18/2024 13:16:03 08/18/20 24 08/18/2024 CBC MCH 31.4 pg 27.0-3 2.0 Not Available [facility] [address] [facility] [address], [place], [address], 08/18/2024 13:16:03 08/18/2008/18/2024 CBC MCHC 34.8 g/dL 32.0-3 6.0 Not Available [facility] [address] [facility] [address] [facility] [address], [place], [address], 08/18/2024 13:16:03 08/18/2008/18/2024 CBC RDW 14.0 % 11.5-1 4.5 Not Available [facility] [address] [facility] [address] [facility] [address], [place], [address], 08/18/2024 13:16:03 08/18/2008/18/2024 CBC plt 153.0 x10 150.0- 451.0 Not Available [facility] [place] [address] [facility] [address], [place], [address], 08/18/2024 13:16:03 08/18/2008/18/2024 CBC lymphocytes % 29.5 % 20.0-5 0.0 Not Available [facility] [place] [address] [facility] [address], [place], [address], 08/18/2024 13:16:03 08/18/2008/18/2024 CBC granulcytes % 59.8 % 30.0-7 0.0 Not Available [facility] [address] [facility] [address], [place], [address], 08/18/2024 13:16:03 08/18/20 24 08/18/2024 CBC monocytes % 7.6 % 2.0-16 .0 Not Available [facility] [address] [facility] 1, [place], [address], 08/18/2024 13:16:03 08/18/20 24 08/18/2024 CBC granulcytes# 3.2 x10 Not Karen ilable [facility] [address] [facility] [address], [place], [address], 08/18/2024 13:16:03 08/18/20 24 08/18/2024 CBC lymphocytes # 1.6 x10 Not Available [facility] [address] [facility] [address], [place], [address], 08/18/2024 13:16:03 08/18/20 24 08/18/2024 CBC monocytes # 0.4 x10 Not Avai lable [facility] [address] [facility] [address], [place], [address], 08/18/2024 13:16:03 08/18/20 24 08/18/2024 CMP (MALE ) glucose 99.0 mg/dL 60.0-9 9.0 Not Available [facility] [address] [facility] [address], [place], [address], 08/18/2024 13:30:26 08/18/20 24 08/18/2024 CMP (MALE ) BUN (blood urea nitrogen) 23.0 mg/dL 10.0-2 6.0 Not Available [facility] [address] [facility] [address], [place], [address], 08/18/2024 13:30:26 08/18/20 24 08/18/2024 CMP (MALE ) creatinine (serum) 0.9 mg/dL 0.4-1. 5 Not Available [facility] [address] [facility] [address], [place], [address], 08/18/2024 13:30:26 08/18/20 24 08/18/2024 CMP (MALE ) BUN/creatini ne ratio 27.06 ratio Not Available [facility] [address], [place], [address], 08/18/2024 13:30:26 08/18/20 24 08/18/2024 CMP (MALE ) eGFR calculated 109.7 Not Available [facility] [place] [address], [place], [address], 08/18/2024 13:30:26 08/18/20 24 08/18/2024 CMP (MALE ) total protein 7.6 g/dL 6.0-8. 5 Not Available [facility] [place] [address] [facility] [address], [place], [address], 08/18/2024 13:30:26 08/18/20 24 08/18/2024 CMP (MALE ) total bilirubin 0.5 mg/dL 0.2-1. 3 Not Available [facility] [place] [address] [facility] [address], [place], [address], 08/18/2024 13:30:26 08/18/20 24 08/18/2024 CMP (MALE ) albumin 5.1 g/dL 3.5-5. 5 Not Available [facility] [place] [facility] [address] [facility] [address], [place], [address], 08/18/2024 13:30:26 08/18/20 24 08/18/2024 CMP (MALE ) globulin 2.5 calc Not Available [facility] [address], [place], [address], 08/18/2024 13:30:26 08/18/20 24 08/18/2024 CMP (MALE ) AST (SGOT) 29.0 U/L 0.0-46 .0 Not Available [facility] [place] [facility] [address] [facility] [address], [place], [address], 08/18/2024 13:30:26 08/18/20 24 08/18/2024 CMP (MALE ) altv (SGPT) 26.0 U/L 13.0-6 9.0 normal Not Available [facility] [place] [facility] [address] [facility] [address], [place], [address], 08/18/2024 13:30:26 08/18/20 24 08/18/2024 CMP (MALE ) A/G ratio 2.0 ratio Not Available [facility] [address] [facility] [address], [place], [address], 08/18/2024 13:30:26 08/18/20 24 08/18/2024 CMP (MALE ) ALP phos 75.0 U/L 30.0-1 40.0 normal Not Available [facility] [address] [facility] [address], [place], [address], 08/18/2024 13:30:26 08/18/20 24 08/18/2024 CMP (MALE ) calcium 9.9 mg/dL 8.4-10 .5 Not Available [facility] [place] [address] [facility] [address], [place], [address], 08/18/2024 13:30:26 08/18/20 24 08/18/2024 CMP (MALE ) sodium 142.0 mmol/ L 136.0- 145.0 Not Available [facility] [place] [address] [facility] [address], [place], [address], 08/18/2024 13:30:26 08/18/20 24 08/18/2024 CMP (MALE ) potassium 4.5 mmol/ L 3.5-5. 1 Not Available [place] [facility] [address] [facility] [address], [place], [address], 08/18/2024 13:30:26 08/18/20 24 08/18/2024 CMP (MALE ) chloride 106.0 mmol/ L 98.0-1 10.0 normal Not Available [facility] [place] [address] [facility] [address], [place], [address], 08/18/2024 13:30:26 08/18/20 24 08/18/2024 CMP (MALE ) C02 26.0 mmol/ L 22.0-3 1.0 Not Available [facility] [address] [facility] [address], [place], [address], 08/18/2024 13:30:26 08/18/20 24 08/18/2024 CMP (MALE ) anion gap 10.0 calc Not Available [facility] [address] [facility] [address], [place], [address], 08/18/2024 13:30:26 08/18/20 24 08/18/2024 CMP (MALE ) osmolality 296.6 calc Not Available [facility] [address] [facility] [address], [place], [address], 08/18/2024 13:30:26 08/18/20 24 08/18/2024 LIPID PROFI LE (MALE ) cholesterol 194.0 mg/dL 0.0-20 0.0 Not Available [facility] [address] [facility] [address], [place], [address], 08/18/2024 13:30:28 08/18/20 24 08/18/2024 LIPID PROFI LE (MALE ) trig 79.0 mg/dL 0.0-15 0.0 Not Available [place] [facility] [address] [facility] [address], [place], [address], 08/18/2024 13:30:28 08/18/20 24 08/18/2024 LIPID PROFI LE (MALE ) HDL - direct 35.0 mg/dL >40.0 low Not Available [facility] [address] [facility] [address], [place], [address], 08/18/2024 13:30:28 08/18/20 24 08/18/2024 LIPID PROFI LE (MALE ) VLDL - direct 15.8 mg/dL Not Available [facility] [address] [facility] [address], [place], [address], 08/18/2024 13:30:28 08/18/20 24 08/18/2024 LIPID PROFI LE (MALE ) LDL - direct 143.2 mg/dL 0.0-13 0.0 high Not Available [facility] [address] [facility] [address], [place], [address], 08/18/2024 13:30:28 08/18/20 24 08/18/2024 HbA1c (hemo globi n A1c), blood HbA1c 4.6 Not Available [facility] ([facility]) [address] [place], [address], 08/18/2024 12:17:27 08/23/20 24 08/23/2024 TSH, serum or plasm a TSH 2.29 uIU/m L 0.49-3 .82 normal Not Available [facility] ([facility]) [address] [place], [address], 08/18/2024 12:17:28 04/22/20 24 04/22/2024 XR, lumbo sacra l spine , 4 or more view No observ ation record ed. dcrase [facility] [address] [place], [address], 04/23/2024 11:11:15 Result Notes None recorded. Problems Name Problem SNOMED Code Status Onset Date Resolution Date Notes Provider Name and Address Organization Details Recorded Time Lower back injury 667472354 Active 024 Leland Noe MD [address] [place], [address] , ANDRES - [facility], [facility] 04/22/2024 13:08:25 Problem Notes None recorded. Medical Equipment None Reported. Allergies No known drug allergies Medications Name Sig Start Date Stop Date Status Note LastModified by Organization Details LastModified Time losartan 100 mg tablet Take 1 tablet every day by oral route. active Not Available Not Available No t Available Vitals Date Recorded Body height Body mass index (BMI) Body weight Oxygen saturation Oxygen saturation in Arterial blood by Pulse oximetry Heart rate Respiratory rate Body temperature Systolic And Diastolic Provider Name and Address Organization Details Last Updated DateTime 4 195.58 cm 40.1 kg/m2 286618. 22 g 99 % 99 % 111 /min 20 /min 97.1 [degF] 160/100 mm[Hg] [facility] 4 11:12:25 Date Recorded Body height Body mass index (BMI) Body weight Oxygen saturation Oxygen saturation in Arterial blood by Pulse oximetry Heart rate Systolic And Diastolic Provider Name and Address Organization Details Last Updated DateTime 4 195.58 cm 40.8 kg/m2 321445. 78 g 98 % 98 % 104 /min 172/98 mm[Hg] MOHINDER GAMBINO [facility] 4 12:51:00 Date Recorded Body height Body mass index (BMI) Body weight Oxygen saturation Oxygen saturation in Arterial blood by Pulse oximetry Heart rate Systolic And Diastolic Provider Name and Address Organization Details Last Updated DateTime 4 187.96 cm 39 kg/m2 332386. 08 g 96 % 96 % 77 /min 160/110 mm[Hg] DAGMAR BILLY [facility] 4 14:19:12 Social History None recorded. Functional Status None recorded. Mental Status None recorded. Family History Nothing Reported Notes:Father Anthony, 1 Bro; Overweight., Mother Kelley; HTN.: Denied Hypertension: Mother Medical History No medical history recorded. Immunizations Vaccine Type Date Status Note Provider Nam e and Address Organization Details Recorded Time Influenza, split virus, trivalent, preservative 2 completed Not Available [facility] 05/03/2023 02:51:56 MMR 6 completed MOHINDER GAMBINO null, [facility] 04/22/2024 12:43:17 MMR 1 completed MOHINDER GATESRIS null, [facility] 04/22/2024 12:43:17 COVID-19, mRNA, LNP-S, PF, 100 mcg/0.5mL dose or 50 mcg/0.25mL dose 1 completed MOHINDER GAMBINO null, [facility] 04/22/2024 12:43:17 COVID-19, mRNA, LNP-S, PF, 100 mcg/0.5mL dose or 50 mcg/0.25mL dose 1 completed MOHINDER GAMBINO null, [facility] 04/22/2024 12:43:17 Tdap 6 completed MOHINDER GAMBINO null, [facility] 04/22/2024 12:43:17 Tdap 7 completed MOHINDER GAMBINO null, [facility] 04/22/2024 12:43:17 DTP 0 completed MOHINDER GAMBINO null, [facility] 04/22/2024 12:43:17 OPV, trivalent 2 completed MOHINDER GAMBINO null, [facility] 04/22/2024 12:43:17 OPV, trivalent 6 completed MOHINDER GAMBINO null, [facility] 04/22/2024 12:43:17 OPV, trivalent 0 completed MOHINDER GAMBINO null, [facility] 04/22/2024 12:43:17 OPV, trivalent 0 completed MOHINDER GAMBINO null, [facility] 04/22/2024 12:43:17 DTP-Hib 1 completed MOHINDER GAMBINO null, [facility] 04/22/2024 12:43:17 DTP-Hib 0 completed MOHINDER GAMBINO null, [facility] 04/22/2024 12:43:17 Hep B, adolescent or pediatric 3 completed MOHINDER GAMBINO null, [facility] 04/22/2024 12:43:17 Hep B, adolescent or pediatric 3 completed MOHINDER GAMBINO null, [facility] 04/22/2024 12:43:17 Hib ([facility]) 1 completed MOHINDER GAMBINO null [facility] 04/22/2024 12:43:17 Hib ([facility]) 1 completed MOHINDER GAMBINO null, [facility] 04/22/2024 12:43:17 DTaP 2 completed MOHINDER GAMBINO null [facility] 04/22/2024 12:43:17 DTaP 6 completed MOHINDER GAMBINO null [facility] 04/22/2024 12:43:17 Past Encounters Encounter ID Performer Location Encounter Start Date Encounter Closed Date Diagnosis/Indication Diagnosis SNOMED-CT Code Diagnosis ICD10 Code Diagnosis IMO Codes Diagnosis Note [id number] [place] AZAR [facility] ([facility]) [address] [place] [address] 10/21/2023 11:02:14 10/21/2023 14:43:52 Pain in left arm 334230721 M79.602 Pain has resolved completely per patient. Full ROM of left arm, shoulder, elbow, wrist joints. No edema or bruising. Patient ia able to return to full duties at work today. No follow up needed. Discussed he can take tylenol and ibuprofen PRN for pain. Patient is agreeable to plan of care. [id number] Leland Noe MD [facility] ([facility]) [address] [place] [phone] 04/22/2024 12:40:56 04/22/2024 14:14:30 Lower back injury [id number] S39.92XA Imaging was obtained including flexion and extension. The patient did have some limitation in movement, otherwise x-rays were unremarkab le. Discussed reducing lifting restrictio n to 20 pounds or less and continue to avoid bending and twisting. Follow-up with Dr. Sanchez next week. [id number] Manuel Zheng MD [facility] ([facility]) [address] [place] [address] 08/18/2024 10:50:57 08/18/2024 14:11:52 Adult health examination [id number] Z00.00 [id number] Malika Rivera MD [facility] ([facility]) [address] [place] [phone] 08/19/2024 10:47:41 08/25/2024 17:55:08 [id number] TERESA DUEÑAS [facility] ([facility]) [address] [place] [address] 08/19/2024 11:05:50 08/23/2024 15:30:03 Health Concerns Section Related Observation LastModified by Organization Detai ls LastModified Time None Recorded Concern Status LastModified by Organization Details LastModified Time None Recorded Advance Directives Directive None Recorded Payers Insurance Date Sequence Insurance Name Policy Number Policy Velasquez Covered Member ID Velasquez Member ID Guarantor Name 04/22/2024 [facility] Jaime Kramer 10/21/2023 [facility] Jaime Kramer Notes Date Note Type Note Provider Name and Address Organization Details Recorded Time 10/21/2023 text/html Joint PainReport ed by PatientHPIFor location, patient reportsright arm. For severity, patient reportsimproving. For duration, patient reportspresent <1 month. For context, patient reportstrauma. For associated symptoms, patient reportsno fever,no weak limbs, andno tingling.ROS as noted in the HPI Patient is a 33 year old male who presents to the walk in clinic today for left forearm pain follow up. Patient states he fell at work and landed on his left forearm on 10/19/23. Patient states he was evaluated in the ED and had normal x-rays. Reports pain has resolved and he has no swelling or bruising. Patient states he just needs a note saying he is cleared to return to work. 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 DOI: 10/19/23Workplace: [employer] RENEE VELARDE, OPERATIONS GENERAL AGENT-C [address] [place], [address], [facility], [place]. 10/21/2023 11:29:33 04/22/2024 text/html Got hit in the right side with a tree branch while working today.He said when he got hit with the branch, his body twisted.Currently having back pain at this time. Had back surgery back in December by Dr. Sanchez. The patient has follow-up appointment with Dr. Sanchez next week. Leland Noe MD [address] [place], [address], [facility] [place], [place]. 04/25/2024 09:07:46
--- OUTSIDE RECORDS SUMMARY | 2025-08-14 11:32 | XMS_ITS | Clinical Summary ---
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
[2025-08-14 11:35] VITALS: BP 175/98; PULSE 73; RESP 18; TEMP 36.4; O2SAT 99
--- NOTE | 2025-08-14 11:39 | W.ED.GENADLT ---
HPI - General Adult General: Chief complaint: Extremity Injury, Upper Stated complaint: R forearm Pain and numbess Time Seen by Provider: 08/14/25 11:27 History of Present Illness: 35-year-old male presents to the emergency room with complaints of numbness and tingling along the medial part of his forearm extending down to the little finger. Get some discomfort at the medial aspect of the elbow noticed some bruising. No recent fall or trauma or direct injury no previous surgery. No neck pain. Related Data Home Medications ?Medication ?Instructions ?Recorded ?Confirmed losartan 50 mg tablet 100 mg PO DAILY 04/20/24 07/29/24 Previous Rx's ?Medication ?Instructions ?Recorded ondansetron HCl 4 mg tablet 4 mg PO Q6H PRN nausea and 12/19/23 vomiting 7 days #20 tabs diclofenac sodium 75 mg 75 mg PO Q12H PRN pain #20 tabs 08/14/25 tablet,delayed release Allergies Allergy/AdvReac Type Severity Reaction Status Date / Time No Known Allergies Allergy Verified 07/29/24 08:03 Review of Systems Musc: Denies: neck pain or back pain PFS ED PFSH: Social History Smoking and tobacco/nicotine status: never used tobacco/nicotine Physical Exam Const: COMMON NORMALS: no acute distress GENERAL APPEARANCE: cooperative and comfortable ORIENTATION/CONSCIOUSNESS: Yes awake, Yes oriented to person, Yes oriented to place and Yes oriented to time HENMT: COMMON NORMALS: normocephalic, atraumatic and hearing grossly normal bilaterally HEAD & SCALP: normocephalic and atraumatic Resp: COMMON NORMALS: normal respiratory effort, No retractions and No use of accessory muscles Extremity: COMMON NORMALS: normal to inspection, capillary refill normal, no clubbing, cyanosis or edema, no calf tenderness and no pedal edema OTHER: Bruising on the medial aspect of the elbow overlying the olecranon process there is some proximally over the bicep as well. No laceration minimal swelling. Decreased sensation in distribution of the ulnar nerve distal to the elbow. No crepitus or deformity no signs of infection no induration no drainage Neuro: SENSORIUM/ORIENTATION: Yes oriented to person, Yes oriented to place and Yes oriented to time Skin: COMMON NORMALS: no rashes or lesions noted GENERAL SKIN EXAM: no rashes or lesions noted Course Vital Signs: Vital signs: Vital Signs Temperature 97.6 F 08/14/25 11:35 Pulse Rate 77 08/14/25 12:49 Respiratory Rate 18 08/14/25 11:35 Blood Pressure 137/85 08/14/25 12:49 Pulse Oximetry 100 08/14/25 12:49 Oxygen Delivery Me thod Room Air 08/14/25 11:50 MDM - General Adult Medical Decision Making CBC normal platelets normal x-rays unremarkable for fracture. Patient does have an ulnar neuropathy suspect it is from what ever trauma gave him the bruising in the inner aspect of the elbow he cannot recall anything in particular discharge him home can use ice elevate gave diclofenac to use. Follow-up with primary care if not improving Medical Records I reviewed the patient's medical records. Lab Data I reviewed the patient's lab results. 08/14/25 12:10 Radiology Impressions Elbow X-Ray 08/14/25 11:50 IMPRESSION: No acute fracture or dislocation. Laboratory Results WBC 6.11 10^3/uL (3.29-11.43) 08/14/25 12:10 RBC 4.82 10^6/uL (3.85-5.65) 08/14/25 12:10 Hgb 15.00 g/dL (11.27-16.99) 08/14/25 12:10 Hct 45.1 % (37-53) 08/14/25 12:10 MCV 93.6 fl (82-101) 08/14/25 12:10 MCH 31.1 pg (27-33) 08/14/25 12:10 MCHC 33.3 g/dL (30-55) 08/14/25 12:10 RDW 13.2 % (12.1-15.1) 08/14/25 12:10 Plt Count 164 10^3/cmm (157-399) 08/14/25 12:10 MPV 10.3 fL (7.4-10.4) 08/14/25 12:10 Neut % (Auto) 59.1 % 08/14/25 12:10 Lymph % (Auto) 29.1 % 08/14/25 12:10 Terrell % (Auto) 8.5 % 08/14/25 12:10 Eos % (Auto) 2.3 % 08/14/25 12:10 Baso % (Auto) 0.8 % 08/14/25 12:10 Neut # (Auto) 3.61 10^3/uL (1.8-7.7) 08/14/25 12:10 Lymph # (Auto) 1.8 10^3/uL (0.8-4.8) 08/14/25 12:10 Terrell # (Auto) 0.5 10^3/uL (0.2-0.9) 08/14/25 12:10 Eos # (Auto) 0.1 10^3/uL (0.0-0.8) 08/14/25 12:10 Baso # (Auto) 0.1 10^3/uL (0.0-0.1) 08/14/25 12:10 Nucleated RBC % (auto) 0 % 08/14/25 12:10 Nucleated RBCs # 0.0 /100WBC 08/14/25 12:10 All radiology interpretation(s) finalized by discharge Discharge Plan Discharge Patient Disposition: Home Clinical Impression: Ulnar neuropathy at elbow of right upper extremity, Traumatic ecchymosis of right elbow Condition: Stable Prescriptions: New diclofenac sodium 75 mg tablet,delayed release (DR/EC) 75 mg PO Q12H PRN (Reason: pain) Qty: 20 0RF No Action losartan 50 mg tablet 100 mg PO DAILY ondansetron HCl 4 mg tablet 4 mg PO Q6H PRN (Reason: nausea and vomiting) 7 Days Qty: 20 0RF Discharge Orders: Discharge ED (Routine); Ordered 08/14/25 Ordered By: Yonis Nguyen Referrals: Mildred García DO [Primary Care Provider, [employer]] Discharge Diet: Usual diet Discharge Activity: Increase activity as tolerated Patient Instructions: Opioid Safety, Pain Management, Patient Portal & Juan Instructions Activity Restrictions/Additional Instructions: Thank you for choosing [facility] for your healthcare needs today. It is very important that you follow up as instructed or that you return to the Emergency Department should you have concerns or if your condition changes or worsens in any way. Emergency department visits are focused on emergent conditions, in some cases you may require further evaluation on an outpatient basis. You were seen in the emergency room with complaint of bruising of the inner aspect of your 1 numbness on your forearm extending to the tip of your fifth finger on the right hand. Based on the bruising suspect you hit bumps somehow injured the soft tissue there is cause swelling some blood in the tissue it is irritating the ulnar nerve causing the numbness. This should be self-limiting you are given anti-inflammatories to use as needed. Protect that portion of the elbow from reinjury and follow-up with your primary care doctor if is not improving. (Please note that included in your discharge packet is information concerning opioid safety and pain management. This information is given to all patients were discharged from the ER regardless of their discharge diagnosis or the medicines they usually take or are prescribed.) Print Language: Spanish Coding Level of Care Code ED Telephone Interviewer for Hermila Frank
[2025-08-14 11:50] VITALS: BP 146/88; PULSE 86; O2SAT 100
--- NOTE | 2025-08-14 11:50 | XRR_ITS ---
PROCEDURE INFORMATION: Exam: XR Right Elbow Exam date and time: 08/14/2025 11:54 AM Age: 35 years old Clinical indication: Numbness; Hand; Right; Additional info: Bruising of unknown source to medial RT upper arm area; Joint pain/ poking sensation to ac area with movement; Some numbness to RT hand/fingers; No known injury TECHNIQUE: Imaging protocol: Radiologic exam of the right elbow. Views: 3 or more views. COMPARISON: No relevant prior studies available. FINDINGS: Bones/joints: Tiny triceps enthesophyte. Soft tissues: Normal. XR/XR elbow RT min 3V* [id number] IMPRESSION: No acute fracture or dislocation.
[2025-08-14 12:28] LABS: Hematocrit 45.1 % (37-53); Hemoglobin 15.00 g/dL (11.27-16.99); Mean Corpuscular HGB Conc 33.3 g/dL (30-55); Mean Corpuscular Hemoglobin 31.1 pg (27-33); Mean Corpuscular Volume 93.6 fl (82-101); Nucleated Red Blood Cells % 0 %; Platelet Count 164 10^3/cmm (157-399); Red Blood Count 4.82 10^6/uL (3.85-5.65); White Blood Count 6.11 10^3/uL (3.29-11.43)
[2025-08-14 12:49] VITALS: BP 137/85; PULSE 77; O2SAT 100
== END 2025-08-14 12:51 | disposition home or self-care (01) ==
PROVIDERS: Emergency Provider Family Medicine; PCP Family Medicine
DX: G56.21 Lesion of ulnar nerve, right upper limb (principal); S50.01XA Contusion of right elbow, initial encounter; X58.XXXA Exposure to other specified factors, initial encounter
CPT/HCPCS: 73080; 85025; 99283